=== PATIENT | male | born 1945 | race Caucasian/White ===

== ENCOUNTER → 2016-06-25 | Outpatient (CLI) | payer MEDICARE, MEDICAID ==
[~2016-06-25] MED LIST: OMEP-110 PO
[2016-06-25 11:49] LABS: HEMOGLOBIN 14.7 g/dL (13.7-18.0)
[2016-06-25 12:12] LABS: ASPARTATE AMINO TRANSFERASE 29 U/L (15-37); BLOOD UREA NITROGEN 8 mg/dL (7-18)
[2016-06-27 12:07] LABS: AFP-L3% SERUM 6.1 % (0.0-9.9)
== END | disposition home or self-care (01) ==
LOC: LAB 11:29
PROVIDERS: ATTEND Physician Assistant
DX: K74.60 Unspecified cirrhosis of liver (principal); K92.1 Melena; K59.00 Constipation, unspecified
CPT/HCPCS: 36415; 80053; 82107; 85025; 85610

== ENCOUNTER → 2016-07-13 | Outpatient (CLI) | payer MEDICARE, MEDICAID | END | disposition home or self-care (01) | LOC: CFH 09:20 | PROVIDERS: ATTEND Physician Assistant | DX: B18.2 Chronic viral hepatitis C (principal) | CPT/HCPCS: 76705 ==

== ENCOUNTER → 2016-07-16 | Outpatient (CLI) | payer MEDICARE, MEDICAID | END | disposition home or self-care (01) | LOC: CFH 10:13 | PROVIDERS: ATTEND Radiology Radiation Oncology | DX: Z08 Encounter for follow-up examination after completed treatment for malignant neoplasm (principal); C61 Malignant neoplasm of prostate | CPT/HCPCS: 36415; 84153 ==

== ENCOUNTER → 2016-07-19 | Outpatient (CLI) | payer MEDICARE, MEDICAID | END | disposition home or self-care (01) | LOC: ROC 14:38 | PROVIDERS: ATTEND Radiology Radiation Oncology | DX: C61 Malignant neoplasm of prostate (principal); J44.9 Chronic obstructive pulmonary disease, unspecified; G89.29 Other chronic pain; K74.60 Unspecified cirrhosis of liver; K62.5 Hemorrhage of anus and rectum; Z88.0 Allergy status to penicillin | CPT/HCPCS: G0463 ==

== ENCOUNTER → 2016-08-06 | Outpatient (CLI) | payer MEDICARE, MEDICAID ==
[2016-08-06 11:44] LABS: ASPARTATE AMINO TRANSFERASE 27 U/L (15-37); BLOOD UREA NITROGEN 10 mg/dL (7-18)
== END | disposition home or self-care (01) ==
LOC: LAB 11:18
PROVIDERS: ATTEND Registered Nurse
DX: Z13.220 Encounter for screening for lipoid disorders (principal); B18.2 Chronic viral hepatitis C
CPT/HCPCS: 36415; 80053; 80061

== ENCOUNTER → 2016-09-14 | Outpatient (CLI) | payer MEDICARE, MEDICAID ==
[2016-09-14 13:00] LABS: BLOOD UREA NITROGEN 9 mg/dL (7-18)
[2016-09-14 13:03] LABS: PROSTATE SPECIFIC ANTIGEN 0.07 ng/mL (0.00-4.00)
== END | disposition home or self-care (01) ==
LOC: LAB 12:25
PROVIDERS: ATTEND Registered Nurse
DX: C61 Malignant neoplasm of prostate (principal); N40.3 Nodular prostate with lower urinary tract symptoms
CPT/HCPCS: 36415; 80048; 84153

== ENCOUNTER → 2017-02-16 | Outpatient (CLI) | payer MEDICARE, MEDICAID ==
[2017-02-16 10:19] LABS: HEMOGLOBIN 14.4 g/dL (13.7-18.0); WHITE BLOOD COUNT 7.6 x10^3/uL (3.4-10)
[2017-02-16 10:37] LABS: ASPARTATE AMINO TRANSFERASE 18 U/L (15-37); BLOOD UREA NITROGEN 8 mg/dL (7-18)
[2017-02-20 12:07] LABS: AFP SERUM 4.8 ng/mL (0.0-8.0)
== END ==
LOC: RAD 09:30 → EDSTATUS 10:00
PROVIDERS: ATTEND Physician Assistant
DX: K74.60 Unspecified cirrhosis of liver (principal); Z90.49 Acquired absence of other specified parts of digestive tract; Z88.8 Allergy status to other drugs, medicaments and biological substances
CPT/HCPCS: 36415; 76705; 80053; 82107; 85025

== ENCOUNTER 2017-02-27 15:17 | Inpatient (IN) | payer MEDICARE, MEDICAID ==
[~2017-02-27] VITALS: Ht 185.4 cm; Wt 95.3 kg
[2017-02-27] MEDS ORDERED: MORPHINE SULFATE 4 MG/ML, 1ML IVPush PRN (15:30)
[2017-02-27] MEDS ORDERED: SODIUM CHLORIDE 0.9% 1,000ML IVBOLUS ONE (15:30)
[2017-02-27] MEDS ORDERED: ONDANSETRON 2MG/ML, 2ML IVPush ONE (15:30)
[2017-02-27] MEDS ORDERED: SODIUM CHLORIDE FLUSH 10ML SYR IVF ONE (15:30)
[2017-02-27] MEDS ORDERED: ONDANSETRON 2MG/ML, 2ML ONE (15:56)
[2017-02-27] MEDS ORDERED: morphine SULFATE 10 MG/ML, 1ML ONE (15:56)
[2017-02-27] MEDS ORDERED: DILTIAZEM 125 MG in DEXTROSE 5% 100 ML IV SCH (16:01)
[2017-02-27 16:02] LABS: HEMATOCRIT 49.3 % (39.2-51.8); HEMOGLOBIN 16.6 g/dL (13.7-18.0); WHITE BLOOD COUNT 10.1 x10^3/uL (3.4-10)
[2017-02-27 16:16] LABS: IS PT STATUS REG ER OR PRE ER? YES
[2017-02-27] MEDS ORDERED: DILTIAZEM 5 MG/ML, 5ML ONE (16:23)
[2017-02-27] MEDS ORDERED: morphine SULFATE 10 MG/ML, 1ML IVPush ONE (16:30)
[2017-02-27] MEDS ORDERED: DILTIAZEM 5 MG/ML, 5ML IVPush ONE ×2 (16:30→19:00)
[2017-02-27] MEDS ORDERED: TAMS-11 PO (17:38)
[2017-02-27] MEDS ORDERED: DOCU-131 PO (17:38)
[2017-02-27] MEDS ORDERED: FLUT12HF2 INH (17:38)
[2017-02-27] MEDS ORDERED: HYDR-3245 PO (17:38)
[2017-02-27 17:44] LABS: ASPARTATE AMINO TRANSFERASE 13 U/L (15-37); BLOOD UREA NITROGEN 12 mg/dL (7-18)
[2017-02-27] MEDS ORDERED: DILTIAZEM 125 MG in SODIUM CHLORIDE 0.9% 100 ML IV SCH (18:39)
[2017-02-27] MEDS ORDERED: BISACODYL 10 MG SUPP PR PRN (19:00)
[2017-02-27] MEDS ORDERED: LORazepam 2 MG/ML, 1ML IVPush PRN (19:00)
[2017-02-27] MEDS ORDERED: ALBUTEROL/IPRATROPIUM 2.5MG/0.5MG, 3 ML HHN SCH (19:00)
[2017-02-27] MEDS ORDERED: ONDANSETRON 2MG/ML, 2ML IV PRN (19:00)
[2017-02-27] MEDS ORDERED: ONDANSETRON 2MG/ML, 2ML IVPush PRN (19:00)
[2017-02-27 19:33] LABS: IS PT STATUS REG ER OR PRE ER? YES
[2017-02-27] MEDS ORDERED: LACTATED RINGERS 1,000 ML IV SCH (20:00)
[2017-02-27 21:00] VITALS: BP 114/78
[2017-02-27] MEDS: SODIUM CHLORIDE FLUSH 10ML SYR IVF SCH (21:00)
[2017-02-27] MEDS ORDERED: OXYC5TAB3 PO (21:37)
[2017-02-27] MEDS ORDERED: PANT20TA3 PO (21:38)
[2017-02-27] MEDS: HYDROmorphone 2 MG/ML, 1ML IVPush PRN (23:18)
[2017-02-28 00:56] LABS: IS PT STATUS REG ER OR PRE ER? NO
[2017-02-28 02:36] VITALS: BP 102/68
[2017-02-28] MEDS: HYDROmorphone 2 MG/ML, 1ML IVPush PRN ×2 (02:45→06:07)
[2017-02-28 04:32] LABS: HEMATOCRIT 42.5 % (39.2-51.8); HEMOGLOBIN 14.3 g/dL (13.7-18.0); WHITE BLOOD COUNT 7.4 x10^3/uL (3.4-10)
[2017-02-28 04:41] LABS: BLOOD UREA NITROGEN 13 mg/dL (7-18)
[2017-02-28 04:46] LABS: IS PT STATUS REG ER OR PRE ER? NO
[2017-02-28] MEDS ORDERED: PANTOPRAZOLE 40 MG IV IVPush SCH (07:30)
[2017-02-28 08:59] VITALS: BP 109/72
[2017-02-28] MEDS: POLYETHYLENE GLYCOL 17 GM PACKET PO SCH (09:00)
[2017-02-28] MEDS: SODIUM CHLORIDE FLUSH 10ML SYR IVF SCH ×2 (09:00→19:52)
[2017-02-28] MEDS: SALMETEROL INH SCH (09:00)
[2017-02-28] MEDS: TAMSULOSIN 0.4 MG CAP.ER.24H PO SCH (09:00)
[2017-02-28] MEDS: FLUTICASONE INH SCH (09:00)
[2017-02-28] MEDS: METOPROLOL SUCCINATE 25 MG TAB.ER.24H PO SCH ×2 (09:01→17:21)
[2017-02-28] MEDS: OXYcodone IR 5MG TABLET PO PRN ×3 (10:26→22:48)
[2017-02-28] MEDS: PANTOPRAZOLE 20MG TABLET PO SCH ×2 (11:16→19:52)
[2017-02-28 14:18] VITALS: BP 93/49
[2017-02-28] MEDS: NICOTINE 14MG/24 HR PATCH.TD24 TD SCH (16:42)
[2017-02-28] MEDS: ALBUTEROL/IPRATROPIUM 2.5MG/0.5MG, 3 ML NPPB SCH (18:44)
[2017-02-28 19:13] VITALS: BP 107/70
[2017-02-28] MEDS ORDERED: DIPHENHYDRAMINE 50 MG CAPSULE PO PRN (23:30)
[2017-03-01 02:00] VITALS: BP 103/67
[2017-03-01] MEDS: ALBUTEROL/IPRATROPIUM 2.5MG/0.5MG, 3 ML NPPB SCH ×3 (02:33→15:00)
[2017-03-01] MEDS: MORPHINE SULFATE 4 MG/ML, 1ML IVPush PRN ×2 (03:09→13:23)
[2017-03-01] MEDS: OXYcodone IR 5MG TABLET PO PRN ×3 (05:06→16:45)
[2017-03-01] MEDS ORDERED: REGADENOSON 0.4 MG/5 ML SYRINGE ONE (07:57)
[2017-03-01 09:15] VITALS: BP 109/68
[2017-03-01] MEDS: POLYETHYLENE GLYCOL 17 GM PACKET PO SCH (09:29)
[2017-03-01] MEDS: FLUTICASONE INH SCH (09:30)
[2017-03-01] MEDS: SALMETEROL INH SCH (09:30)
[2017-03-01] MEDS: TAMSULOSIN 0.4 MG CAP.ER.24H PO SCH (09:35)
[2017-03-01] MEDS: PANTOPRAZOLE 20MG TABLET PO SCH (09:35)
[2017-03-01] MEDS: SODIUM CHLORIDE FLUSH 10ML SYR IVF SCH (09:35)
[2017-03-01] MEDS: METOPROLOL SUCCINATE 25 MG TAB.ER.24H PO SCH ×2 (09:35→16:45)
[2017-03-01] MEDS ORDERED: morphine SULFATE 10 MG/ML, 1ML ONE (13:19)
[2017-03-01 14:10] VITALS: BP 119/70
[2017-03-01] MEDS ORDERED: METO25TA91 PO (15:44)
[2017-03-01] MEDS: NICOTINE 14MG/24 HR PATCH.TD24 TD SCH (16:45)
== END 2017-03-01 17:34 | disposition home or self-care (01) | DRG 309 ==
LOC: ED 18:33 → EDIP 18:34 → ED 18:50 → 5SO 20:08
PROVIDERS: ADMIT Family Medicine; ATTEND Internal Medicine
DX: I48.91 Unspecified atrial fibrillation (principal); D68.69 Other thrombophilia; K92.0 Hematemesis; J44.1 Chronic obstructive pulmonary disease with (acute) exacerbation; K74.60 Unspecified cirrhosis of liver; M17.0 Bilateral primary osteoarthritis of knee; G89.4 Chronic pain syndrome; R00.1 Bradycardia, unspecified; G89.3 Neoplasm related pain (acute) (chronic); F17.200 Nicotine dependence, unspecified, uncomplicated; Z87.11 Personal history of peptic ulcer disease; Z85.46 Personal history of malignant neoplasm of prostate; Z92.3 Personal history of irradiation; Z90.49 Acquired absence of other specified parts of digestive tract; Z82.49 Family history of ischemic heart disease and other diseases of the circulatory system; Z88.0 Allergy status to penicillin; Z88.1 Allergy status to other antibiotic agents
CPT/HCPCS: 36415; 71010; 78452; 80048; 80053; 83690; 83735; 84439; 84443; 84484; 85025; 85610; 85730; 86850; 86900; 87324; 93005; 93017; 93306; 94640; 96361; 96374; 96375; 96376; J1170; J2405; J2785; J7620; A9502; C9898; J2060; J2270; J7030; J7120

== ENCOUNTER → 2017-03-27 | Outpatient (CLI) | payer MEDICARE, MEDICAID ==
[~2017-03-27] MED LIST changes: +DOCU-131 PO; +FLUT12HF2 INH; +HYDR-3245 PO; +METO25TA91 PO; +OXYC5TAB3 PO; +PANT20TA3 PO; +TAMS-11 PO
== END ==
LOC: CFH 09:35
PROVIDERS: ATTEND Physician Assistant
DX: Z02.9 Encounter for administrative examinations, unspecified (principal)

== ENCOUNTER → 2017-03-29 | Outpatient (CLI) | payer MEDICARE, MEDICAID ==
[~2017-03-29] MED LIST changes: +OMNIPAQUE 350 MG/ML, 100ML BOTTLE ONE
== END | disposition home or self-care (01) ==
LOC: RAD 10:42
PROVIDERS: ATTEND Physician Assistant
DX: K57.30 Diverticulosis of large intestine without perforation or abscess without bleeding (principal); K76.0 Fatty (change of) liver, not elsewhere classified; K40.20 Bilateral inguinal hernia, without obstruction or gangrene, not specified as recurrent; K74.60 Unspecified cirrhosis of liver
CPT/HCPCS: 71260; 74177; Q9967

== ENCOUNTER 2017-06-15 03:13 | Emergency (ER) | payer MEDICARE, MEDICAID ==
[~2017-06-15] VITALS: Ht 188 cm; Wt 90.9 kg
[~2017-06-15 03:13] MED LIST changes: -OMNIPAQUE 350 MG/ML, 100ML BOTTLE ONE
[2017-06-15] MEDS ORDERED: POLY17PO3 PO (03:47)
[2017-06-15] MEDS ORDERED: MORP15TA3 PO (03:47)
[2017-06-15] MEDS ORDERED: GABA300C10 PO (03:47)
[2017-06-15] MEDS ORDERED: PANT40TA3 PO (03:47)
[2017-06-15] MEDS ORDERED: FLUT1DIS IH (03:47)
[2017-06-15] MEDS ORDERED: OXYC10TA72 PO (03:47)
[2017-06-15] MEDS ORDERED: ONDANSETRON 2MG/ML, 2ML ONE (03:51)
[2017-06-15] MEDS ORDERED: MORPHINE SULFATE 4 MG/ML, 1ML ONE (03:52)
[2017-06-15] MEDS ORDERED: MORPHINE SULFATE 4 MG/ML, 1ML IVPush PRN (04:00)
[2017-06-15] MEDS ORDERED: ONDANSETRON 2MG/ML, 2ML IVPush ONE (04:00)
[2017-06-15 04:09] LABS: BASOPHILS # (AUTO) 0.05 x10^3/uL (0-0.1); BASOPHILS % (AUTO) 1 % (0-1); EOSINOPHILS # (AUTO) 0.07 x10^3/uL (0-0.4); EOSINOPHILS % (AUTO) 1 % (1-7); LYMPHOCYTES # (AUTO) 1.45 x10^3/uL (1-3.4); LYMPHOCYTES % (AUTO) 16 % (22-44); MD NO; MEAN CORPUSCULAR HEMOGLOBIN 31.1 pg (27.5-34.5); MEAN CORPUSCULAR HGB CONC 33.7 g/dL (33.2-36.2); MEAN CORPUSCULAR VOLUME 92.3 fL (81-97); MEAN PLATELET VOLUME 10.8 fL (7.4-10.4); MONOCYTES # (AUTO) 0.56 x10^3/uL (0.2-0.8); MONOCYTES % (AUTO) 6 % (2-9); NEUTROPHILS # (AUTO) 6.79 x10^3/uL (1.8-6.8); NEUTROPHILS % (AUTO) 76 % (42-75); PLATELET COUNT 167 x10^3/uL (130-400); RED BLOOD COUNT 4.92 x10^6/uL (4.38-5.82); RED CELL DISTRIBUTION WIDTH 13.3 % (9.4-14.8)
[2017-06-15 04:14] LABS: ALANINE AMINOTRANSFERASE 17 U/L (12-78); ALBUMIN 3.8 g/dL (3.4-5.0); ANION GAP 7 mmol/L (5-15); CALCIUM 8.9 mg/dL (8.5-10.1); CHLORIDE 107 mmol/L (98-107)
[2017-06-15 04:19] LABS: ALKALINE PHOSPHATASE 70 U/L (45-117); BILIRUBIN,TOTAL 0.6 mg/dL (0.2-1.0); CREATININE 0.65 mg/dL (0.7-1.3); TOTAL PROTEIN 7.5 g/dL (6.4-8.2); TROPONIN I < 0.015 ng/mL (0.000-0.045)
[2017-06-15 05:23] VITALS: BP 132/68
== END 2017-06-15 05:26 | disposition home or self-care (01) ==
LOC: ED 05:22
DX: F11.23 Opioid dependence with withdrawal (principal); G89.29 Other chronic pain; M25.561 Pain in right knee; R10.84 Generalized abdominal pain; J44.9 Chronic obstructive pulmonary disease, unspecified
CPT/HCPCS: 36415; 71045; 80053; 83690; 84484; 85025; 93005; 96374; 96375; 99285; J2405

== ENCOUNTER → 2017-07-12 | Outpatient (CLI) | payer MEDICARE, MEDICAID ==
[~2017-07-12] MED LIST changes: +FLUT1DIS IH; +GABA300C10 PO; +MORP15TA3 PO; +OXYC10TA72 PO; +PANT40TA3 PO; +POLY17PO3 PO
[2017-07-12 14:01] LABS: FREE T4 (FREE THYROXINE) 1.23 ng/dL (0.76-1.46); THYROID STIMULATING HORMONE 1.73 mIU/L (0.358-3.740)
== END ==
LOC: LAB 13:26
PROVIDERS: ATTEND Physician Assistant
DX: K74.60 Unspecified cirrhosis of liver (principal); R63.4 Abnormal weight loss; R93.5 Abnormal findings on diagnostic imaging of other abdominal regions, including retroperitoneum; E03.9 Hypothyroidism, unspecified
CPT/HCPCS: 36415; 84439; 84443; 84481

== ENCOUNTER → 2017-07-18 | Outpatient (CLI) | payer MEDICARE, MEDICAID | LOC: ROC 08:22 | PROVIDERS: ATTEND Radiology Radiation Oncology | DX: Z08 Encounter for follow-up examination after completed treatment for malignant neoplasm (principal); C61 Malignant neoplasm of prostate; K74.60 Unspecified cirrhosis of liver; B19.20 Unspecified viral hepatitis C without hepatic coma; Z88.0 Allergy status to penicillin; Z88.1 Allergy status to other antibiotic agents | CPT/HCPCS: G0463 ==

== ENCOUNTER → 2017-12-18 | Outpatient (CLI) | payer MEDICARE, MEDICAID | END | disposition home or self-care (01) | LOC: LAB 11:02 | PROVIDERS: ATTEND Physician Assistant | DX: K74.60 Unspecified cirrhosis of liver (principal) | CPT/HCPCS: 36415; 82107 ==

== ENCOUNTER → 2018-01-15 | Outpatient (CLI) | payer MEDICARE, MEDICAID | END | disposition home or self-care (01) | LOC: CFH 07:19 | PROVIDERS: ATTEND Physician Assistant | DX: R16.1 Splenomegaly, not elsewhere classified (principal); Z90.49 Acquired absence of other specified parts of digestive tract | CPT/HCPCS: 76705 ==

== ENCOUNTER → 2018-07-28 | Outpatient (CLI) | payer MEDICARE, MEDICAID ==
[~2018-07-28] MED LIST changes: +POLY17PO29 PO; -POLY17PO3 PO
== END | disposition home or self-care (01) ==
LOC: CFH 07:13
PROVIDERS: ATTEND Physician Assistant
DX: K74.60 Unspecified cirrhosis of liver (principal); Z88.0 Allergy status to penicillin; Z88.1 Allergy status to other antibiotic agents
CPT/HCPCS: 76705

== ENCOUNTER → 2018-08-12 | Outpatient (CLI) | payer MEDICARE, MEDICAID | END | disposition home or self-care (01) | LOC: LAB 11:13 | PROVIDERS: ATTEND Radiology Radiation Oncology | DX: Z08 Encounter for follow-up examination after completed treatment for malignant neoplasm (principal); C61 Malignant neoplasm of prostate; Z85.46 Personal history of malignant neoplasm of prostate | CPT/HCPCS: 36415; 84153 ==

== ENCOUNTER → 2018-08-18 | Outpatient (CLI) | payer MEDICARE | END | disposition home or self-care (01) | LOC: ROC 08:06 | PROVIDERS: ATTEND Radiology Radiation Oncology | DX: C61 Malignant neoplasm of prostate (principal); K74.60 Unspecified cirrhosis of liver | CPT/HCPCS: G0463 ==

== ENCOUNTER → 2019-08-25 | Outpatient (CLI) | payer MEDICARE, MEDICAID ==
[~2019-08-25] MED LIST changes: +MORP-29 PO; -MORP15TA3 PO
== END | disposition home or self-care (01) ==
LOC: CFH 08:59
PROVIDERS: ATTEND Physician Assistant
DX: Z08 Encounter for follow-up examination after completed treatment for malignant neoplasm (principal); C61 Malignant neoplasm of prostate; R97.20 Elevated prostate specific antigen [PSA]; K74.60 Unspecified cirrhosis of liver; Z90.49 Acquired absence of other specified parts of digestive tract
CPT/HCPCS: 36415; 76705; 84153

== ENCOUNTER 2020-01-05 10:28 | Outpatient (CLI) | payer MEDICAID, MEDICARE ==
[~2020-01-05 10:28] MED LIST changes: -PANT20TA3 PO; +PANT20TA4 PO
== END 2020-01-05 23:59 | disposition home or self-care (01) ==
LOC: CFH 10:28
PROVIDERS: ATTEND Radiology Radiation Oncology
DX: Z08 Encounter for follow-up examination after completed treatment for malignant neoplasm (principal); C61 Malignant neoplasm of prostate; Z85.46 Personal history of malignant neoplasm of prostate; R97.20 Elevated prostate specific antigen [PSA]
CPT/HCPCS: 36415; 84153

== ENCOUNTER → 2020-01-28 | Outpatient (CLI) | payer MEDICARE, MEDICAID | END | disposition home or self-care (01) | LOC: ROC 07:35 | PROVIDERS: ATTEND Radiology Radiation Oncology | DX: Z08 Encounter for follow-up examination after completed treatment for malignant neoplasm (principal); Z85.46 Personal history of malignant neoplasm of prostate | CPT/HCPCS: G0463 ==

== ENCOUNTER → 2020-02-19 | Outpatient (CLI) | payer MEDICARE, MEDICAID | END | disposition home or self-care (01) | LOC: CFH 15:30 | PROVIDERS: ATTEND Physician Assistant | DX: K74.60 Unspecified cirrhosis of liver (principal); Z90.49 Acquired absence of other specified parts of digestive tract | CPT/HCPCS: 76705 ==

== ENCOUNTER → 2020-08-26 | Outpatient (CLI) | payer MEDICARE, MEDICAID ==
[~2020-08-26] MED LIST changes: -HYDR-3245 PO; +HYDR1TAB53 PO; -OXYC5TAB3 PO; +OXYC5TAB98 PO; -POLY17PO29 PO; +POLY17PO50 PO
== END | disposition home or self-care (01) ==
LOC: CFH 09:03
PROVIDERS: ATTEND Physician Assistant
DX: K74.60 Unspecified cirrhosis of liver (principal); Z90.49 Acquired absence of other specified parts of digestive tract
CPT/HCPCS: 76705

== ENCOUNTER 2020-12-22 07:38 | Outpatient (CLI) | payer MEDICARE, MEDICAID | END 2020-12-22 23:59 | disposition home or self-care (01) | LOC: LAB 07:38 | PROVIDERS: ATTEND Radiology Radiation Oncology | DX: Z08 Encounter for follow-up examination after completed treatment for malignant neoplasm (principal); C61 Malignant neoplasm of prostate; R97.20 Elevated prostate specific antigen [PSA]; Z85.46 Personal history of malignant neoplasm of prostate | CPT/HCPCS: 36415; 84153; G0103 ==